=== PATIENT | female | born 1980 | race Caucasian/White ===

== ENCOUNTER 2022-03-12 06:06 | Day surgery (SDC) | payer OTHER ==
[~2022-03-12] VITALS: Ht 175.3 cm; Wt 131.5 kg
[2022-03-12 06:35] LABS: HCG,QUAL RESULT NEGATIVE (NEGATIVE)
[2022-03-12] MEDS ORDERED: CEFAZOLIN SOD 1 GM in D5W 50 ML IV ONE (07:00)
[2022-03-12] MEDS ORDERED: SUGAMMADEX SODIUM 200 MG/2 ML VIAL IV ONE (09:21)
[2022-03-12] MEDS ORDERED: LR 1,000 ML IV.SOLN IV ONE (09:21)
[2022-03-12] MEDS ORDERED: DESFLURANE 15 MIN GAS INH ONE (09:21)
[2022-03-12] MEDS ORDERED: CEFAZOLIN 2 GM IVPB PREMIX 50 ML IV ONE (09:21)
[2022-03-12] MEDS ORDERED: DEXAMETHASONE SOD PHOSPHATE 4 MG/ML VIAL IVP ONE (09:21)
[2022-03-12] MEDS ORDERED: PROPOFOL 200MG/ 20ML VIAL (DIPRIVAN) IV ONE (09:21)
[2022-03-12] MEDS ORDERED: MIDAZOLAM HCL 5 MG/5 ML VIAL IVP ONE (09:21)
[2022-03-12] MEDS ORDERED: ONDANSETRON HCL 4 MG/2 ML VIAL IVP ONE (09:21)
[2022-03-12] MEDS ORDERED: ROCURONIUM BROMIDE 10 MG/ML (ZEMURON) IV ONE (09:21)
[2022-03-12] MEDS ORDERED: fentaNYL CITRATE 250 MCG/5 ML AMP IV ONE (09:21)
[2022-03-12] MEDS ORDERED: ACETAMINOPHEN I.V. 1000 MG 100 ML IV ONE (09:44)
[2022-03-12] MEDS ORDERED: LABETALOL 100 MG/ 20ML VIAL IVP PRN (10:00)
[2022-03-12] MEDS ORDERED: METOCLOPRAMIDE HCL 10 MG/2 ML VIAL IVP PRN (10:00)
[2022-03-12] MEDS ORDERED: MEPERIDINE HCL/PF 25 MG/ML DISP.SYRIN IVP PRN (10:00)
[2022-03-12] MEDS ORDERED: hydrALAZINE HCL 20 MG/ML VIAL IVP PRN (10:00)
[2022-03-12] MEDS ORDERED: MIDAZOLAM HCL 2 MG/2 ML VIAL (VERSED) IVP PRN (10:00)
[2022-03-12] MEDS ORDERED: LR 1,000 ML IV SCH (10:00)
[2022-03-12] MEDS ORDERED: HYDROmorphone 1 MG/ML INJ. CARTRIDGE IVP PRN ×2 (10:00)
[2022-03-12] MEDS ORDERED: HYDROcodone/ACETAMIN 5-325 MG TAB (NORCO/ VICODIN) PO PRN (12:15)
[2022-03-12] MEDS ORDERED: D5/0.45 NS 1,000 ML IV SCH (12:15)
[2022-03-12 13:28] VITALS: BP_SYST 132
== END 2022-03-12 13:00 | disposition home or self-care (01) ==
LOC: SDS 06:06 → SMU 06:07 → SDS 13:00
PROVIDERS: ATTEND Colon & Rectal Surgery
DX: D05.12 Intraductal carcinoma in situ of left breast (principal); J45.909 Unspecified asthma, uncomplicated; E66.01 Morbid (severe) obesity due to excess calories; Z79.899 Other long term (current) drug therapy; Z20.822 Contact with and (suspected) exposure to COVID-19
CPT/HCPCS: 36415 ×2; 19301; 84703; 88307; 87426; U0003; J3490; J0690 ×2; J1100; J2250; J2405; J2704; J3010; J7060; J7120; J0131